=== PATIENT | female | born 1985 | race African-American/Black ===

== ENCOUNTER 2017-07-03 18:50 | Emergency (ER) ==
[2017-07-03 19:04] VITALS: BP 143/85; TEMP 97.8; BMI 25.0
[2017-07-03] MEDS ORDERED: SODIUM CHLORIDE 1,000 ML IV STA (19:07)
[2017-07-03 19:22] LABS: BASOPHILS # (AUTO) 0.1 K/uL (0-0.2); BASOPHILS % (AUTO) 1.1 % (0.0-3.0); EOSINOPHILS # (AUTO) 0.3 K/ul (0.0-0.7); EOSINOPHILS % (AUTO) 2.6 % (0.0-7.0); HEMATOCRIT 39.4 % (37.0-47.0); HEMOGLOBIN 13.2 g/dl (12.0-16.0); IMMATURE GRANULOCYTE % (AUTO) 0.4 % (0.0-5.0); LYMPHOCYTES # (AUTO) 2.2 K/uL (0.60-3.4); LYMPHOCYTES % (AUTO) 18.6 (10.0-50.0); MEAN CORPUSCULAR HEMOGLOBIN 29.6 pg (27.0-31.0); MEAN CORPUSCULAR HGB CONC 33.5 (31.8-35.4); MEAN CORPUSCULAR VOLUME 88.3 fl (81.0-99.0); MONOCYTES % (AUTO) 8.6 (0-10); NEUTROPHILS % (AUTO) 68.7; PLATELET COUNT 274 10^3/uL (140-440); RED BLOOD COUNT 4.46 10^6/ul (4.20-5.40)
[2017-07-03 19:29] LABS: SERUM PREGNANCY INTERNAL QC INTERNAL QC VALID
[2017-07-03 19:42] LABS: ALBUMIN 4.3 g/dL (3.4-5.0); ALBUMIN/GLOBULIN RATIO 1.23; ANION GAP 14.9; BILIRUBIN,TOTAL 0.41 mg/dL (0.00-1.20); BUN/CREATININE RATIO 11.25; CALCIUM 9.6 mg/dL (8.2-10.2); CREATININE 0.8 mg/dL (0.60-1.30); POTASSIUM 3.9 mmol/L (3.5-5.10); TOTAL PROTEIN 7.8 g/dL (6.4-8.2)
[2017-07-03 19:52] LABS: BILIRUBIN,URINE Negative (NEGATIVE); KETONES,URINE Negative (NEGATIVE); LEUKOCYTE ESTERASE ,URINE 2+ (NEGATIVE); NITRITE,URINE Negative (NEGATIVE); PH,URINE 7.5 (5-9); PROTEIN,URINE Negative (NEGATIVE); URINE, BLOOD Negative (NEGATIVE)
[2017-07-03 19:53] LABS: ADD URINE MICROSCOPIC YES
[2017-07-03 20:08] LABS: TRICHOMONAS,URINE MODERATE (NOT PRESENT)
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
[2017-07-03] MEDS ORDERED: LIDOCAINE HCL 1% SDV SUBCUT STA (21:06)
[2017-07-03] MEDS ORDERED: TETANUS DIPHTHERIA TOXOIDS IM ONE (21:07)
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
[2017-07-03] MEDS ORDERED: TORADOL IVP STA (21:19)
== END 2017-07-03 21:40 | disposition home or self-care (01) ==
LOC: ED 18:50
DX: S01.01XA Laceration without foreign body of scalp, initial encounter (principal); M54.2 Cervicalgia; M54.9 Dorsalgia, unspecified; R51 Headache; A59.9 Trichomoniasis, unspecified; V86.99XA Unspecified occupant of other special all-terrain or other off-road motor vehicle injured in nontraffic accident, initial encounter; F17.210 Nicotine dependence, cigarettes, uncomplicated
CPT/HCPCS: 36415; 80053; 81001; 82150; 83690; 84703; 85025; 87086; 90471; 90714; 96361; 96374; 99283

== ENCOUNTER 2017-10-30 10:56 | Outpatient (CLI) ==
--- NOTE | 2017-10-31 10:49 | MRI ---
EXAM: Cervical spine MRI without contrast. HISTORY: Cervical radiculopathy. COMPARISON: Cervical spine CT scan 07/03/2017. TECHNIQUE: Multiplanar, multisequence MR images were acquired of the cervical spine without contrast . FINDINGS: The craniocervical junction is normal and the cervical cord is unremarkable. There is str aightening of the usual cervical lordosis. There is mild chronic anterior wedging of the C5 vertebra that may be developmental. There is minor ventral spondylosis at C4-5 and C5-6. Intrinsic bone mar row signal is normal. A benign intraosseous hemangioma is present at C7. 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 There is mild adenoidal, palatine and lingual ton sillar hypertrophy that is considered normal for the patient's age. The thyroid gland is mildly enla rged without discrete nodules. Ultrasound could better define the anatomy. There are no paravertebr al masses. Visualized lung apices are clear. C2-3: The intervertebral disc is normal. C3-4: There is a minor posterior disc osteophyte complex and right uncovertebral hypertrophy without foraminal stenosis. In this patient with a developmentally narrow canal, there is minor central netta l stenosis. AP diameter of the thecal sac is 9.5 mm. C4-5: There is a mild posterior disc bulge and in this patient with a narrow canal, there is mild ce ntral canal stenosis. The tiny annular ossification noted on the comparison CT is not identified on the MRI. There is no foraminal stenosis. AP diameter of the thecal sac is 9 mm. C5-6: There is a small posterior disc bulge. There is mild central canal stenosis. AP diameter of the thecal sac is 8.2 mm. C6-7: There is a minor posterior disc bulge and left uncovertebral hypertrophy without foraminal adriana nosis.. AP diameter of the thecal sac is 8.6 mm. C7-T1: The intervertebral disc is normal. There is minor right uncovertebral hypertrophy. There is no central canal stenosis or foraminal stenosis. IMPRESSION: 1. Minor cervical degenerative spondylosis which in this patient with a developmentally narrow canal causes mild stenosis at C4-5, C5-6 and C6-7. 2. No cervical disc herniations or foraminal stenosis.
== END 2017-10-30 10:57 | disposition home or self-care (01) ==
LOC: RAD 10:56
PROVIDERS: ATTEND Nurse Practitioner Family
DX: M54.12 Radiculopathy, cervical region (principal)

== ENCOUNTER 2017-11-28 08:39 | Outpatient (CLI) ==
--- NOTE | 2017-11-28 11:06 | DI ---
EXAM: Two views of the chest. History: Nicotine dependence, chest pain. Comparison: Chest CT 07/03/2017 Findings: Heart size is normal. No focal consolidation. No appreciable pleural fluid and no pneumo thorax. No acute osseous abnormalities. Impression: No acute cardiopulmonary process
== END 2017-11-28 08:40 | disposition home or self-care (01) ==
LOC: LAB 08:39
PROVIDERS: ATTEND Nurse Practitioner Family
DX: M54.12 Radiculopathy, cervical region (principal); F17.200 Nicotine dependence, unspecified, uncomplicated
CPT/HCPCS: 36415; 80053; 80061; 85025